=== PATIENT | male | born 1930 | race Hispanic/Latino ===

== ENCOUNTER 2018-03-08 01:27 | Inpatient (IN) | payer MEDICARE ==
[2018-03-08 02:02] LABS: URINE BILIRUBIN NEGATIVE (NEGATIVE); URINE BLOOD NEGATIVE (NEGATIVE); URINE GLUCOSE (UA) NEGATIVE (NEGATIVE); URINE LEUKOCYTE ESTERASE NEGATIVE Leu/uL (NEGATIVE); URINE PROTEIN NEGATIVE mg/dL (<30 mg/dL); URINE UROBILINOGEN 0.2 E.U./dL (<1 E.U./dL)
[2018-03-08 02:08] LABS: URINE APPEARANCE CLEAR (CLEAR); URINE COLOR LIGHT YELLOW (YELLOW)
[2018-03-08] MEDS ORDERED: Morphine 2 mg/ml ISec IVP STA (02:10)
[2018-03-08] MEDS ORDERED: Sodium Chloride 0.9% 1,000 ML IV STA (02:10)
--- NOTE | 2018-03-08 02:13 | ED PDOC ---
Arrival/HPI - General Chief Complaint: Abdominal Pain Time Seen by Provider: 03/08/18 01:43 Historian: Patient - History of Present Illness Narrative History of Present Illness (Text): 03/08/18 02:09 Nahid Howard is an 87 year old male, whose past medical history includes IDDM, hypertension, valve replacement surgery in 2006, who presents to the emergency department complaining of aching left sided lower belly pain which started yesterday. Patient reports pain worsens with movement and some associated nausea. Pain is constant. Patient reports his last colonoscopy was five years ago. Patient denies any fever, chills, chest pain, shortness of breath, vomiting, diarrhea, bloody stool, constipation, urinary symptoms, back pain, neck pain, headache, dizziness, or any other complaints. PMD: Dr. Gonzalez Time/Duration: 24 hours Symptom Course: Unchanged Quality: Aching Activities at Onset: Light Past Medical History - Provider Review Nursing Documentation Reviewed: Yes - Travel History Have you recently traveled outside [place] w/in the past 3 mons?: No - Infectious Disease Hx of Infectious Diseases: None - Tetanus Immunization Tetanus Immunization: Unknown - Cardiac Hx Hypertension: Yes Hx Pacemaker: No - Pulmonary Hx Respiratory Disorders: No - Neurological Hx Paralysis: No - HEENT Hx HEENT Disorder: No - Renal Hx Renal Disorder: (acute renal disease 10/28/13) - Endocrine/Metabolic Hx Diabetes Mellitus Type 1: Yes - Hematological/Oncological Hx Blood Transfusions: No Hx Blood Transfusion Reaction: No - Integumentary Hx Dermatological Disorder: No - Musculoskeletal/Rheumatological Hx Musculoskeletal Disorders: Yes - Gastrointestinal Hx Gastrointestinal Disorders: No - Genitourinary/Gynecological Hx Genitourinary Disorders: Yes Hx Prostate Problems: Yes - Psychiatric Hx Emotional Abuse: No Hx Physical Abuse: No Hx Substance Use: No - Surgical History Hx Valve Replacement: Yes - Anesthesia Hx Anesthesia Reactions: No Hx Malignant Hyperthermia: No - Suicidal Assessment Feels Threatened In Home Enviroment: No Family/Social History - Physician Review Nursing Documentation Reviewed: Yes Family/Social History: No Known Family HX Smoking Status: Never Smoked Hx Alcohol Use: No Hx Substance Use: No Hx Substance Use Treatment: No Allergies/Home Meds Allergies/Adverse Reactions: Allergies aspirin Allergy (Verified 03/08/18 01:36) NAUSEA Home Medications: Home Meds Medication Instructions Recorded Confirmed Insulin Glargine,Hum.rec.anlog 18 unit SC HS 10/01/13 03/08/18 [Lantus] Carvedilol [Coreg] 6.25 mg PO DAILY 11/21/15 03/08/18 Furosemide [Lasix] 20 mg PO DAILY 11/21/15 03/08/18 Insulin Detemir [Levemir] 30 units SC DAILY 11/21/15 03/08/18 Review of Systems - Physician Review All systems were reviewed & negative as marked: Yes - Review of Systems Cardiovascular: absent: Chest Pain Gastrointestinal: absent: Vomiting Physical Exam - Physical Exam Narrative Physical Exam (Text): 03/08/18 02:09 Constitutional: No acute distress. Head: Normocephalic. Atraumatic. Eyes: PERRL. ENT: Moist mucous membranes. Neck: Supple. Cardiovascular: Regular rate. Chest: No tenderness. Respiratory: Clear to auscultation bilaterally. GI: LLQ tenderness with guarding. Back: No CVA tenderness. Musculoskeletal: No tenderness or swelling of extremities. Skin: No rash. Neurologic: Alert, no focal deficit. Vital Signs Reviewed: Yes Vital Signs Temp Pulse Resp BP Pulse Ox 03/08/18 04:47 86 18 145/64 100 03/08/18 01:38 98.6 F 95 H 18 141/70 96 Temperature: Afebrile Blood Pressure: Normal Pulse: Regular Respiratory Rate: Normal Appearance: Positive for: Well-Appearing, Non-Toxic Pain Distress: Mild Mental Status: Positive for: Alert and Oriented X 3 Medical Decision Making ED Course and Treatment: 03/08/18 02:09 Impression: 87 year old male presents to the emergency department complaining of left sided lower abdominal pain. Plan: -- CT of abdomen/pelvis w/o PO or IV contrast -- Labs -- Morphine --IV fluids -- Zofran -- Urine culture -- Urinalysis -- Reassess and disposition Progress Notes: CT shows diverticulitis without abscess. Started on antibiotics, admitted to hospitalist service. Clear liquid diet ordered. - Lab Interpretations Lab Results: 03/08/18 02:49 03/08/18 02:49 Lab Results 03/08/18 02:49: Sodium 143, Potassium 4.4, Chloride 109 H, Carbon Dioxide 24, Anion Gap 15, BUN 37 H, Creatinine 2.1 H, Est GFR ( Amer) 36, Est GFR ( Non-Af Amer) 30, Random Glucose 124 H, Calcium 8.7, Total Bilirubin 0.6, AST 20 , ALT 27, Alkaline Phosphatase 63, Total Protein 6.9, Albumin 4.0, Globulin 2.9 , Albumin/Globulin Ratio 1.4, Lipase 43 03/08/18 02:49: WBC 11.0 D, RBC 3.25 L, Hgb 9.5 L, Hct 28.5 L, MCV 87.7, MCH 29.2, MCHC 33.3, RDW 14.7 H, Plt Count 198, MPV 10.2, Gran % 65.9, Lymph % (Auto ) 21.5 L, Avery % (Auto) 10.5 H, Eos % (Auto) 1.8, Baso % (Auto) 0.3, Gran # 7.25 H, Lymph # (Auto) 2.4, Avery # (Auto) 1.2 H, Eos # (Auto) 0.2, Baso # (Auto ) 0.03 03/08/18 01:52: Urine Color Light yellow, Urine Appearance Clear, Urine pH 6.0, Ur Specific [place] 1.020, Urine Protein Negative, Urine Glucose (UA) Negative, Urine Ketones Negative, Urine Blood Negative, Urine Nitrate Negative, Urine Bilirubin Negative, Urine Urobilinogen 0.2, Ur Leukocyte Esterase Negative - RAD Interpretation Radiology Orders: 03/08/18 03:15 ABD & PELVIS W/O PO OR IV CONT [CT] Stat - Medication Orders Current Medication Orders: Metronidazole (Flagyl) 500 mg in 100 mls @ 100 mls/hr IVPB STAT STA PRN Reason: Protocol Stop: 03/08/18 07:29 Last Admin: 03/08/18 06:40 Dose: 100 mls/hr eMAR Start Stop Document 03/08/18 06:40 RD (Rec: 03/08/18 06:40 RD [id number]) Intravenous Solution Start Date 03/08/18 Start Time 06:40 End Date 03/08/18 End time 07:40 Total Infusion Time 60 Discontinued Medications Sodium Chloride (Sodium Chloride 0.9%) 1,000 mls @ 999 mls/hr IV .Q1H1M STA Stop: 03/08/18 03:10 Last Admin: 03/08/18 02:41 Dose: 999 mls/hr eMAR Start Stop Document 03/08/18 02:41 OCS (Rec: 03/08/18 02:41 OCS [id number]) Intravenous Solution Start Date 03/08/18 Start Time 02:41 End Date 03/08/18 End time 03:42 Total Infusion Time 61 Levofloxacin/Dextrose (Levaquin 750mg) 750 mg IVPB STAT STA PRN Reason: Protocol Stop: 03/08/18 06:31 Morphine Sulfate (Morphine) 2 mg IVP STAT STA Stop: 03/08/18 02:11 Last Admin: 03/08/18 02:38 Dose: 2 mg MAR Pain Assessment Document 03/08/18 02:38 OCS (Rec: 03/08/18 02:38 OCS [id number]) Pain Reassessment Is this a pain reassessment? No Sleep Is patient sleeping during reassessment? No Presence of Pain Presence of Pain Yes Pain Scale Used Pain Scale Used Numeric Location Left, Right or Bilateral Left Upper or Lower Lower Pain Location Body Site Abdomen Description Description Constant Intensity of Pain at present 5 Aggravating Factors ADL's IVP Administration Document 03/08/18 02:38 OCS (Rec: 03/08/18 02:38 OCS [id number]) Charges for Administration # of IVP Administrations 1 Ondansetron HCl (Zofran Inj) 8 mg IVP STAT STA Stop: 03/08/18 02:11 Last Admin: 03/08/18 02:38 Dose: 8 mg IVP Administration Document 03/08/18 02:38 OCS (Rec: 03/08/18 02:38 OCS [id number]) Charges for Administration # of IVP Administrations 1 - Scribe Statement The provider has reviewed the documentation as recorded by the Scribe Page Osbornh All medical record entries made by the Scribe were at my direction and personally dictated by me. I have reviewed the chart and agree that the record accurately reflects my personal performance of the history, physical exam, medical decision making, and the department course for this patient. I have also personally directed, reviewed, and agree with the discharge instructions and disposition. Disposition/Present on Arrival - Present on Arrival Any Indicators Present on Arrival: No History of DVT/PE: No History of Uncontrolled Diabetes: No Urinary Catheter: No History of Decub. Ulcer: No History Surgical Site Infection Following: None - Disposition Have Diagnosis and Disposition been Completed?: Yes Diagnosis: Acute diverticulitis Disposition: HOSPITALIZED Disposition Time: 06:15 Patient Plan: Admission Condition: FAIR Referrals: Manish Gonzalez MD [Primary Care Provider] - Follow up with primary Forms: [employer] (Kiswahili)
[2018-03-08 03:09] LABS: ALB/GLOB RATIO 1.4 (1.1-1.8); CALCIUM 8.7 mg/dL (8.4-10.5)
[2018-03-08 03:32] LABS: BASO # 0.03 K/mm3 (0.0-2.0); BASO % 0.3 % (0.0-3.0); EOS # 0.2 (0.0-0.7); EOS % 1.8 % (1.5-5.0); GRAN # 7.25 (1.4-6.5); GRAN % 65.9 % (50.0-68.0); HEMOGLOBIN 9.5 g/dL (14.0-18.0); LYMPH # 2.4 (1.2-3.4); LYMPH % 21.5 % (22.0-35.0); MEAN CELL VOLUME 87.7 fl (80.0-105.0); MEAN CORPUSCULAR HEMOGLOBIN 29.2 pg (25.0-35.0); MEAN CORPUSCULAR HGB CONC 33.3 g/dl (31.0-37.0); MEAN PLATELET VOLUME 10.2 fl (7.0-11.0); MONO # 1.2 (0.1-0.6); MONO % 10.5 % (1.0-6.0); RBC 3.25 10^6/uL (3.5-6.1); RED CELL DISTRIBUTION WIDTH 14.7 % (11.5-14.5)
[2018-03-08] MEDS ORDERED: levoFLOXacin 750 mg in D5W 150 ML BAG IVPB STA (06:30)
[2018-03-08] MEDS ORDERED: metroNIDAZOLE IV 500 mg/100 ml 500 MG/100 ML BAG IVPB STA (06:30)
[2018-03-08 09:40] VITALS: BMI 30.4
[2018-03-08] MEDS: cefTRIAXone 1 gm 1 GM/100 ML BAG IVPB SCH (10:41)
--- NOTE | 2018-03-08 10:46 | CT ---
Date of service: 03/08/2018 PROCEDURE: CT Abdomen and Pelvis without intravenous contrast HISTORY: llq pain COMPARISON: 10/29/2013 TECHNIQUE: Unenhanced study. Neither oral nor intravenous contrast administered. Radiation dose: Total exam DLP = mGy-cm. This CT exam was performed using one or more of the following dose reduction techniques: Automated exposure control, adjustment of the mA and/or kV according to patient size, and/or use of iterative reconstruction technique. FINDINGS: LOWER THORAX: Unremarkable. LIVER: Unremarkable. No gross lesion or ductal dilatation. GALLBLADDER AND BILE DUCTS: Status post cholecystectomy. No abnormality is seen in the gallbladder fossa. PANCREAS: Unremarkable. No gross lesion or ductal dilatation. SPLEEN: Unremarkable. ADRENALS: Unremarkable. No mass. KIDNEYS AND URETERS: Unremarkable. No hydronephrosis. No solid mass. VASCULATURE: Unremarkable. No aortic aneurysm. BOWEL: Acute diverticulitis of affecting of limited section of the descending colon and adjacent sigmoid approximately 8 cm. No loculated air, free air, drainable collection identified. APPENDIX: Unremarkable. Normal appendix. PERITONEUM: Unremarkable. No free fluid. No free air. LYMPH NODES: Unremarkable. No enlarged lymph nodes. BLADDER: Unremarkable. REPRODUCTIVE: Unremarkable. BONES: No acute fracture. OTHER FINDINGS: None. IMPRESSION: Acute diverticulitis confined to a short segment of distal descending colon and sigmoid. No evidence of loculated air, free air or drainable collection. Concordant results (preliminary interpretation) provided by Dials. Procedure Completed: 03:27. Preliminary (vRad) Report: Dictated and Authenticated: 06:12. Final Interpretation: 10:44.
--- NOTE | 2018-03-08 11:22 | CP.PCM.HP ---
<JordinMilton loja - Last Filed: 03/08/18 15:01> History of Present Illness - History of Present Illness History of Present Illness: CC: Abdominal Pain HPI: Mr. Howard is an 87 year old male with PMH of IDDM, hypertension, valve replacement surgery in 2010, who presents to the emergency department complaining of a constant and aching left sided lower abdominal pain which started yesterday. He states that he went to sleep and was woken up with the pain at night. He denies having any stomach issues in the past before. Patient' s last bowel movement was on but he is still having flatus. Patient reports his last colonoscopy was five years ago and was normal. Patient denies any fever, chills, chest pain, shortness of breath, vomiting, diarrhea, melena, constipation, urinary symptoms, headache, or dizziness. 12 point ROS negative except as indicated in HPI Past medical history: HTN, IDDM, CKD stage 3, chronic systolic CHF, CAD s/p stent (2013), ILD, thyroid nodule, pulmonary nodule, anemia Surgical History: Aortic valve replacement (2010), cholecystectomy, stent placement (2013) Allergies: NKDA Social History: Denied alcohol, tobacco,or illicit drug use. Lives at home by self. Family History: Mother- DM-2 Medications: ASA 81mg, coreg, flonase, lasix, irbesartan, insulin, vitamin B, potassium chloride PMD: Dr. Heller [facility]: [facility] Present on Admission - Present on Admission Any Indicators Present on Admission: No History of DVT/PE: No History of Uncontrolled Diabetes: No Urinary Catheter: No Decubitus Ulcer Present: No Review of Systems - Review of Systems Review of Systems: 12 point ROS negative except as indicated in HPI Past Patient History - Infectious Disease Hx of Infectious Diseases: None - Tetanus Immunizations Tetanus Immunization: Unknown - Past Social History Smoking Status: Never Smoked - CARDIAC Hx Hypertension: Yes Hx Pacemaker: No - PULMONARY Hx Respiratory Disorders: No - NEUROLOGICAL Hx Neurological Disorder: No - HEENT Hx HEENT Problems: No - RENAL Hx Chronic Kidney Disease: (acute renal disease 10/28/13) - ENDOCRINE/METABOLIC Hx Diabetes Mellitus Type 1: Yes - HEMATOLOGICAL/ONCOLOGICAL Hx Blood Disorders: No - INTEGUMENTARY Hx Dermatological Problems: No - MUSCULOSKELETAL/RHEUMATOLOGICAL Hx Musculoskeletal Disorders: Yes Hx Falls: No - GASTROINTESTINAL Hx Gastrointestinal Disorders: No - GENITOURINARY/GYNECOLOGICAL Hx Genitourinary Disorders: Yes Hx Prostate Problems: Yes - PSYCHIATRIC Hx Emotional Abuse: No Hx Physical Abuse: No Hx Substance Use: No - SURGICAL HISTORY Hx Valve Replacement: Yes - ANESTHESIA Hx Anesthesia Reactions: No Hx Malignant Hyperthermia: No Meds Allergies/Adverse Reactions: Allergies Allergy/AdvReac Type Severity Reaction Status Date / Time No Known Allergies Allergy Verified 03/08/18 09:42 Physical Exam - Constitutional Appears: No Acute Distress - Head Exam Head Exam: ATRAUMATIC, NORMAL INSPECTION - Eye Exam Eye Exam: Normal appearance - ENT Exam ENT Exam: Mucous Membranes Moist - Cardiovascular Exam Cardiovascular Exam: REGULAR RHYTHM, +S1, +S2. absent: Gallop, Rubs, Systolic Murmur - GI/Abdominal Exam GI & Abdominal Exam: Normal Bowel Sounds, Soft, Tenderness Additional comments: Tender to palpation on lower left quadrant - Extremities Exam Extremities exam: Negative for: calf tenderness, pedal edema - Neurological Exam Neurological exam: Alert, Oriented x3 - Psychiatric Exam Psychiatric exam: Normal Affect, Normal Mood - Skin Skin Exam: Dry, Normal Color, Warm Results - Vital Signs Recent Vital Signs: Last Vital Signs Temp 98.7 F 03/08/18 09:31 Pulse 80 03/08/18 09:31 Resp 18 03/08/18 09:31 BP 106/57 L 03/08/18 09:31 Pulse Ox 99 03/08/18 08:47 - Labs Result Diagrams: 03/08/18 02:49 03/08/18 02:49 Assessment & Plan - Assessment and Plan (Free Text) Assessment: Mr. Howard is an 87 year old male with PMH of IDDM, hypertension, valve replacement surgery in 2010, who is presenting with lower abdominal pain and is being admitted for evaluation and treatment of acute diverticulitis. Plan: Acute diverticulitis - CT abdomen (03/08): acute diverticulitis confined to a short segment of distal descending colon and sigmoid - start Ceftriaxone 1g IV QD and Metronidazole 500mg IV Q8 - GI consulted- Dr. 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 Villarreal <Catina Villarreal - Last Filed: 03/08/18 15:19> Results - Vital Signs Recent Vital Signs: Last Vital Signs Temp 98.1 F 03/08/18 15:04 Pulse 81 03/08/18 15:04 Resp 18 03/08/18 15:04 BP 101/54 L 03/08/18 15:04 Pulse Ox 94 L 03/08/18 15:04 - Labs Result Diagrams: 03/08/18 02:49 03/08/18 02:49 Labs: Laboratory Results - last 24 hr 03/08/18 11:40 POC Glucose (mg/dL) 117 H Attending/Attestation - Attestation I have personally seen and examined this patient.: Yes I have fully participated in the care of the patient.: Yes I have reviewed all pertinent clinical information: Yes Notes (Text): 03/08/18 15:16 Attending note; Patient seen and examined with resident. Patient is a 87 year old male with PMH of IDDM, hypertension, aortic valve replacement surgery in 2010, who presents to the emergency department complaining of a constant and aching left sided lower abdominal pain which started yesterday. CT abdomen and pelvis consistent with acute sigmoid diverticulitis. Abdominal pain is improving. Started on IV Rocephin and Flagyl. Continue clear liquid diet. History of coronary artery disease; stable cardiac status. Continue aspirin, Coreg and losartan and Lasix. Anemia; chronic. No active bleeding noted. Chronic kidney disease; creatinine is stable at 2.1. GI evaluation requested. Monitor closely. Upon discharge the patient will follow up with PMD Dr. Gonzalez.
[2018-03-08] MEDS: Multivitamin Therapeutic Tab PO SCH (11:38)
[2018-03-08] MEDS: Insulin Reg-MEDIUM-Coverage SC SCH ×3 (11:41→22:29)
[2018-03-08] MEDS: metroNIDAZOLE IV 500 mg/100 ml 500 MG/100 ML BAG IVPB SCH ×2 (13:56→21:45)
[2018-03-09] MEDS: metroNIDAZOLE IV 500 mg/100 ml 500 MG/100 ML BAG IVPB SCH ×3 (05:39→22:15)
[2018-03-09] MEDS: Pantoprazole 40 mg EC Tab PO SCH (05:39)
[2018-03-09 07:02] LABS: HEMOGLOBIN 9.1 g/dL (14.0-18.0); MEAN CELL VOLUME 88.1 fl (80.0-105.0); MEAN CORPUSCULAR HEMOGLOBIN 29.3 pg (25.0-35.0); MEAN CORPUSCULAR HGB CONC 33.2 g/dl (31.0-37.0); MEAN PLATELET VOLUME 10.2 fl (7.0-11.0); RBC 3.11 10^6/uL (3.5-6.1); WHITE BLOOD COUNT 10.4 10^3/ul (4.5-11.0)
[2018-03-09 07:24] LABS: ALB/GLOB RATIO 1.2 (1.1-1.8); ALBUMIN 3.6 g/dL (3.0-4.8); CALCIUM 8.5 mg/dL (8.4-10.5)
[2018-03-09] MEDS: Insulin Reg-MEDIUM-Coverage SC SCH ×3 (08:01→16:01)
[2018-03-09] MEDS: cefTRIAXone 1 gm 1 GM/100 ML BAG IVPB SCH (09:23)
[2018-03-09] MEDS: Multivitamin Therapeutic Tab PO SCH (09:23)
[2018-03-09] MEDS ORDERED: Morphine 2 mg/ml ISec IVP PRN (10:28)
--- NOTE | 2018-03-09 10:46 | CP.PCM.PN ---
<Milton Katz - Last Filed: 03/09/18 11:00> Subjective - Date & Time of Evaluation Date of Evaluation: 03/09/18 Time of Evaluation: 10:46 - Subjective Subjective: Milton Katz D.O PGY-1, Internal Medicine progress note for Patient was examined at bedside, no acute overnight events. Patient complains of constipation and states that his last bowel movement was on . Denies fevers, chills, chest pain, shortness of breath, N/V/D. Objective - Vital Signs/Intake and Output Vital Signs (last 24 hours): Temp Pulse Resp BP Pulse Ox 98.9 F 90 18 105/55 L 92 L 03/08/18 21:16 03/08/18 21:16 03/08/18 21:16 03/08/18 21:16 03/08/18 21:16 Intake and Output: 03/09/18 03/09/18 06:59 18:59 Intake Total 540 Balance 540 - Medications Medications: Current Medications Acetaminophen (Tylenol 325mg Tab) 650 mg PO Q6H PRN PRN Reason: Pain, Mild (1-3) Aspirin (Ecotrin) 81 mg PO DAILY [facility] Last Admin: 03/09/18 09:23 Dose: 81 mg Carvedilol (Coreg) 12.5 mg PO DAILY JOSE Furosemide (Lasix) 40 mg PO DAILY [facility] Heparin Sodium (Porcine) (Heparin) 5,000 units SC Q8 JOSE PRN Reason: Protocol Last Admin: 03/09/18 05:39 Dose: 5,000 units Metronidazole (Flagyl) 500 mg in 100 mls @ 100 mls/hr IVPB Q8 JOSE PRN Reason: Protocol Last Admin: 03/09/18 05:39 Dose: 100 mls/hr Ceftriaxone Sodium (Rocephin 1 Gram Ivpb) 1 gm in 100 mls @ 100 mls/hr IVPB DAILY JOSE PRN Reason: Protocol Last Admin: 03/09/18 09:23 Dose: 100 mls/hr Insulin Human Regular (Humulin R Med) 0 units SC ACHS JOSE PRN Reason: Protocol Last Admin: 03/09/18 08:01 Dose: Not Given Losartan Potassium (Cozaar) 100 mg PO DAILY [facility] Morphine Sulfate (Morphine) 1 mg IVP Q4H PRN PRN Reason: Pain, severe (8-10) Multivitamins (Thera Tab) 1 tab PO DAILY [facility] Last Admin: 03/09/18 09:23 Dose: 1 tab Pantoprazole Sodium (Protonix Ec Tab) 40 mg PO 0600 [facility] Last Admin: 03/09/18 05:39 Dose: 40 mg Potassium Chloride (Klor-Con 10) 10 meq PO QOTHERDAY [facility] - Labs Labs: 03/09/18 06:30 03/09/18 06:30 - Constitutional Appears: No Acute Distress - Head Exam Head Exam: ATRAUMATIC, NORMAL INSPECTION - Eye Exam Eye Exam: Normal appearance - ENT Exam ENT Exam: Mucous Membranes Moist - Respiratory Exam Respiratory Exam: Clear to Ausculation Bilateral. absent: Rales, Rhonchi, Wheezes - Cardiovascular Exam Cardiovascular Exam: REGULAR RHYTHM, +S1, +S2. absent: Gallop, Rubs, Murmur - GI/Abdominal Exam GI & Abdominal Exam: Soft, Tenderness, Normal Bowel Sounds Additional comments: Very tender to palpation on LLQ - Extremities Exam Extremities Exam: absent: Calf Tenderness, Pedal Edema - Neurological Exam Neurological Exam: Alert, Awake, Oriented x3 - Psychiatric Exam Psychiatric exam: Normal Affect, Normal Mood - Skin Skin Exam: Dry, Normal Color, Warm Assessment and Plan - Assessment and Plan (Free Text) Assessment: Mr. Howard is an 87 year old male with PMH of IDDM, hypertension, valve replacement surgery in 2010, who presented with lower abdominal pain and is being admitted for evaluation and treatment of acute diverticulitis. Plan: Acute diverticulitis - CT abdomen (03/08): acute diverticulitis confined to a short segment of distal descending colon and sigmoid - c/w Ceftriaxone 1g IV QD and Metronidazole 500mg IV Q8 - GI consulted- Dr. 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 CKD stage 3 - Continue home potassium chloride, multivitamins - Cr baseline ~2.0 - Creatinine stable, will continue to monitor renal function Hx of systolic CHF - Continue home Coreg 12.5mg PO QD and Lasix 40mg PO QD- hold if SBP <110 and/ or HR <60 Hx of HTN - Continue home Losartan 100mg PO QD- hold if SBP <110 and/or HR <60 - patient is mildly hypotensive Hx of Diabetes - c/w insulin sliding scale - Hold home basal dose of insulin for now - Accu checks ACHS Hx of aortic valve replacement - Continue home Aspirin 81mg PO QD DVT and GI prophylaxis: Heparin and protonix Patient seen, examined, and case discussed with Dr. Villarreal <Catina Villarreal - Last Filed: 03/09/18 13:14> Objective - Vital Signs/Intake and Output Vital Signs (last 24 hours): Temp Pulse Resp BP Pulse Ox 98.9 F 90 18 105/55 L 92 L 03/08/18 21:16 03/08/18 21:16 03/08/18 21:16 03/08/18 21:16 03/08/18 21:16 Intake and Output: 03/09/18 03/09/18 06:59 18:59 Intake Total 540 Balance 540 - Medications Medications: Current Medications Acetaminophen (Tylenol 325mg Tab) 650 mg PO Q6H PRN PRN Reason: Pain, Mild (1-3) Aspirin (Ecotrin) 81 mg PO DAILY [facility] Last Admin: 03/09/18 09:23 Dose: 81 mg Carvedilol (Coreg) 12.5 mg PO DAILY JOSE Furosemide (Lasix) 40 mg PO DAILY [facility] Heparin Sodium (Porcine) (Heparin) 5,000 units SC Q8 JOSE PRN Reason: Protocol Last Admin: 03/09/18 05:39 Dose: 5,000 units Metronidazole (Flagyl) 500 mg in 100 mls @ 100 mls/hr IVPB Q8 JOSE PRN Reason: Protocol Last Admin: 03/09/18 05:39 Dose: 100 mls/hr Ceftriaxone Sodium (Rocephin 1 Gram Ivpb) 1 gm in 100 mls @ 100 mls/hr IVPB DAILY JOSE PRN Reason: Protocol Last Admin: 03/09/18 09:23 Dose: 100 mls/hr Insulin Human Regular (Humulin R Med) 0 units SC ACHS JOSE PRN Reason: Protocol Last Admin: 03/09/18 11:12 Dose: Not Given Losartan Potassium (Cozaar) 100 mg PO DAILY [facility] Morphine Sulfate (Morphine) 1 mg IVP Q4H PRN PRN Reason: Pain, severe (8-10) Multivitamins (Thera Tab) 1 tab PO DAILY [facility] Last Admin: 03/09/18 09:23 Dose: 1 tab Pantoprazole Sodium (Protonix Ec Tab) 40 mg PO 0600 [facility] Last Admin: 03/09/18 05:39 Dose: 40 mg Potassium Chloride (Klor-Con 10) 10 meq PO QOTHERDAY JOSE - Labs Labs: 03/09/18 06:30 03/09/18 06:30 Attending/Attestation - Attestation I have personally seen and examined this patient.: Yes I have fully participated in the care of the patient.: Yes I have reviewed all pertinent clinical information, including history, physical exam and plan: Yes Notes (Text): 03/09/18 13:13 Attending note; Patient seen and examined with resident. Patient is a 87 year old male with PMH of IDDM, hypertension, aortic valve replacement surgery in 2010, who presents to the emergency department complaining of a constant and aching left sided lower abdominal pain which started yesterday. CT abdomen and pelvis consistent with acute sigmoid diverticulitis. Abdominal pain is improving. Started on IV Rocephin and Flagyl. Currently on clear liquid diet. Advance to full liquid diet. Follow up with GI. History of coronary artery disease; stable cardiac status. Continue aspirin, Coreg and losartan and Lasix. Anemia; chronic. No active bleeding noted. Chronic kidney disease; creatinine is stable at 2.1. GI evaluation requested. Monitor closely. Upon discharge the patient will follow up with PMD Dr. Gonzalez.
--- NOTE | 2018-03-09 15:27 | CP.PCM.CON ---
<Pako Mcmahon - Last Filed: 03/09/18 15:41> History of Present Illness - History of Present Illness History of Present Illness: Initial PGY5 Gi Consult Lee Whitfield is an 87M w/ of IDDM, hypertension, valve replacement surgery in 2010, who presents to the ED with LLQ pain. He states that the pain is sharp and sudden. He noted the pain as 10 out of 10 and non-radiating. Patient reports his last colonoscopy was five years ago and was normal. Patient denies any fever, chills, vomiting, diarrhea, melena, constipation. Initial Ct abd revealed non-complicated sigmoid diverticulitis. Pt was started on antibiotics and kept NPO. Abd pain has improved since admission. 12 point ROS negative except as indicated in HPI Past medical history: HTN, IDDM, CKD stage 3, chronic systolic CHF, CAD s/p stent (2013), ILD, thyroid nodule, pulmonary nodule, anemia Surgical History: Aortic valve replacement (2010), cholecystectomy, stent placement (2013) Social History: Denied alcohol, tobacco,or illicit drug use. Lives at home by self. Family History: Mother- DM-2 Past Patient History - Infectious Disease Hx of Infectious Diseases: None - Tetanus Immunizations Tetanus Immunization: Unknown - Past Social History Smoking Status: Never Smoked - CARDIAC Hx Hypertension: Yes Hx Pacemaker: No - PULMONARY Hx Respiratory Disorders: No - NEUROLOGICAL Hx Neurological Disorder: No - HEENT Hx HEENT Problems: No - RENAL Hx Chronic Kidney Disease: (acute renal disease 10/28/13) - ENDOCRINE/METABOLIC Hx Diabetes Mellitus Type 1: Yes - HEMATOLOGICAL/ONCOLOGICAL Hx Blood Disorders: No - INTEGUMENTARY Hx Dermatological Problems: No - MUSCULOSKELETAL/RHEUMATOLOGICAL Hx Musculoskeletal Disorders: Yes Hx Falls: No - GASTROINTESTINAL Hx Gastrointestinal Disorders: No - GENITOURINARY/GYNECOLOGICAL Hx Genitourinary Disorders: Yes Hx Prostate Problems: Yes - PSYCHIATRIC Hx Emotional Abuse: No Hx Physical Abuse: No Hx Substance Use: No - SURGICAL HISTORY Hx Valve Replacement: Yes - ANESTHESIA Hx Anesthesia Reactions: No Hx Malignant Hyperthermia: No Meds Allergies/Adverse Reactions: Allergies Allergy/AdvReac Type Severity Reaction Status Date / Time No Known Allergies Allergy Verified 03/08/18 09:42 - Medications Medications: Current Medications Acetaminophen (Tylenol 325mg Tab) 650 mg PO Q6H PRN PRN Reason: Pain, Mild (1-3) Aspirin (Ecotrin) 81 mg PO DAILY [facility] Last Admin: 03/09/18 09:23 Dose: 81 mg Carvedilol (Coreg) 12.5 mg PO DAILY [facility] Furosemide (Lasix) 40 mg PO DAILY [facility] Heparin Sodium (Porcine) (Heparin) 5,000 units SC Q8 [facility] PRN Reason: Protocol Last Admin: 03/09/18 14:00 Dose: 5,000 units Metronidazole (Flagyl) 500 mg in 100 mls @ 100 mls/hr IVPB Q8 [facility] PRN Reason: Protocol Last Admin: 03/09/18 14:05 Dose: 100 mls/hr Ceftriaxone Sodium (Rocephin 1 Gram Ivpb) 1 gm in 100 mls @ 100 mls/hr IVPB DAILY [facility] PRN Reason: Protocol Last Admin: 03/09/18 09:23 Dose: 100 mls/hr Insulin Human Regular (Humulin R Med) 0 units SC ACHS [facility] PRN Reason: Protocol Last Admin: 03/09/18 11:12 Dose: Not Given Losartan Potassium (Cozaar) 100 mg PO DAILY [facility] Morphine Sulfate (Morphine) 1 mg IVP Q4H PRN PRN Reason: Pain, severe (8-10) Multivitamins (Thera Tab) 1 tab PO DAILY [facility] Last Admin: 03/09/18 09:23 Dose: 1 tab Pantoprazole Sodium (Protonix Ec Tab) 40 mg PO 0600 [facility] Last Admin: 03/09/18 05:39 Dose: 40 mg Potassium Chloride (Klor-Con 10) 10 meq PO QOTHERDAY [facility] Physical Exam - Constitutional Appears: Well, No Acute Distress - Head Exam Head Exam: ATRAUMATIC, NORMOCEPHALIC - Eye Exam Eye Exam: Normal appearance Pupil Exam: NORMAL ACCOMODATION - ENT Exam ENT Exam: Mucous Membranes Moist - Neck Exam Neck exam: Positive for: Normal Inspection - Respiratory Exam Respiratory Exam: Clear to Auscultation Bilateral, NORMAL BREATHING PATTERN. absent: Rales, Rhonchi, Wheezes, Respiratory Distress - Cardiovascular Exam Cardiovascular Exam: REGULAR RHYTHM, +S1, +S2 - GI/Abdominal Exam GI & Abdominal Exam: Normal Bowel Sounds, Soft, Tenderness (LLQ). absent: Distended, Firm, Guarding, Organomegaly, Pulsatile Mass, Rebound, Rigid - Extremities Exam Extremities exam: Negative for: joint swelling, pedal edema - Neurological Exam Neurological exam: Alert, Oriented x3 - Psychiatric Exam Psychiatric exam: Normal Affect, Normal Mood - Skin Skin Exam: Dry, Intact, Normal Color, Warm Results - Vital Signs Recent Vital Signs: Last Vital Signs Temp 98.9 F 03/08/18 21:16 Pulse 90 03/08/18 21:16 Resp 18 03/08/18 21:16 BP 105/55 L 03/08/18 21:16 Pulse Ox 92 L 03/08/18 21:16 - Labs Result Diagrams: 03/09/18 06:30 03/09/18 06:30 Labs: Laboratory Results - last 24 hr 03/08/18 03/08/18 03/09/18 16:02 21:01 06:30 WBC 10.4 RBC 3.11 L Hgb 9.1 L Hct 27.4 L MCV 88.1 MCH 29.3 MCHC 33.2 RDW 15.0 H Plt Count 184 MPV 10.2 Sodium Potassium Chloride Carbon Dioxide Anion Gap BUN Creatinine Est GFR ( Amer) Est GFR (Non-Af Amer) POC Glucose (mg/dL) 102 105 Random Glucose Calcium Total Bilirubin AST ALT Alkaline Phosphatase Total Protein Albumin Globulin Albumin/Globulin Ratio 03/09/18 03/09/18 06:30 06:34 WBC RBC Hgb Hct MCV MCH MCHC RDW Plt Count MPV Sodium 141 Potassium 4.7 Chloride 107 Carbon Dioxide 24 Anion Gap 14 BUN 30 H Creatinine 2.0 H Est GFR ( Amer) 39 Est GFR (Non-Af Amer) 32 POC Glucose (mg/dL) 94 Random Glucose 94 Calcium 8.5 Total Bilirubin 0.6 AST 23 ALT 21 Alkaline Phosphatase 56 Total Protein 6.4 Albumin 3.6 Globulin 2.9 Albumin/Globulin Ratio 1.2 Assessment & Plan - Assessment and Plan (Free Text) Assessment: Lee Whitfield is an 87M w/ of IDDM, hypertension, valve replacement surgery in 2010, who presents to the ED with LLQ pain. He states that the pain is sharp and sudden Acute uncomplicated diverticulitis Plan: -continue abx -start clears, advance to low residual as tolerated -will eventually need colonoscopy after 2months -will need to complete 10 days of abx -continue to follow -consider surgical eval if symptoms do not improve D/W Dr. Bloom <Tmoi Bloom V - Last Filed: 03/09/18 19:03> Meds - Medications Medications: Current Medications Acetaminophen (Tylenol 325mg Tab) 650 mg PO Q6H PRN PRN Reason: Pain, Mild (1-3) Aspirin (Ecotrin) 81 mg PO DAILY [facility] Last Admin: 03/09/18 09:23 Dose: 81 mg Carvedilol (Coreg) 12.5 mg PO DAILY [facility] Furosemide (Lasix) 40 mg PO DAILY [facility] Heparin Sodium (Porcine) (Heparin) 5,000 units SC Q8 [facility] PRN Reason: Protocol Last Admin: 03/09/18 14:00 Dose: 5,000 units Metronidazole (Flagyl) 500 mg in 100 mls @ 100 mls/hr IVPB Q8 [facility] PRN Reason: Protocol Last Admin: 03/09/18 14:05 Dose: 100 mls/hr Ceftriaxone Sodium (Rocephin 1 Gram Ivpb) 1 gm in 100 mls @ 100 mls/hr IVPB DAILY [facility] PRN Reason: Protocol Last Admin: 03/09/18 09:23 Dose: 100 mls/hr Insulin Human Regular (Humulin R Med) 0 units SC ACHS [facility] PRN Reason: Protocol Last Admin: 03/09/18 16:01 Dose: Not Given Losartan Potassium (Cozaar) 100 mg PO DAILY [facility] Morphine Sulfate (Morphine) 1 mg IVP Q4H PRN PRN Reason: Pain, severe (8-10) Multivitamins (Thera Tab) 1 tab PO DAILY [facility] Last Admin: 03/09/18 09:23 Dose: 1 tab Pantoprazole Sodium (Protonix Ec Tab) 40 mg PO 0600 [facility] Last Admin: 03/09/18 05:39 Dose: 40 mg Potassium Chloride (Klor-Con 10) 10 meq PO QOTHERDAY [facility] Results - Vital Signs Recent Vital Signs: Last Vital Signs Temp 98.9 F 03/08/18 21:16 Pulse 90 03/08/18 21:16 Resp 18 03/08/18 21:16 BP 105/55 L 03/08/18 21:16 Pulse Ox 92 L 03/08/18 21:16 - Labs Result Diagrams: 03/09/18 06:30 03/09/18 06:30 Labs: Laboratory Results - last 24 hr 03/08/18 03/08/18 03/09/18 16:02 21:01 06:30 WBC 10.4 RBC 3.11 L Hgb 9.1 L Hct 27.4 L MCV 88.1 MCH 29.3 MCHC 33.2 RDW 15.0 H Plt Count 184 MPV 10.2 Sodium Potassium Chloride Carbon Dioxide Anion Gap BUN Creatinine Est GFR ( Amer) Est GFR (Non-Af Amer) POC Glucose (mg/dL) 102 105 Random Glucose Calcium Total Bilirubin AST ALT Alkaline Phosphatase Total Protein Albumin Globulin Albumin/Globulin Ratio 03/09/18 03/09/18 03/09/18 06:30 06:34 11:08 WBC RBC Hgb Hct MCV MCH MCHC RDW Plt Count MPV Sodium 141 Potassium 4.7 Chloride 107 Carbon Dioxide 24 Anion Gap 14 BUN 30 H Creatinine 2.0 H Est GFR ( Amer) 39 Est GFR (Non-Af Amer) 32 POC Glucose (mg/dL) 94 111 H Random Glucose 94 Calcium 8.5 Total Bilirubin 0.6 AST 23 ALT 21 Alkaline Phosphatase 56 Total Protein 6.4 Albumin 3.6 Globulin 2.9 Albumin/Globulin Ratio 1.2 Attending/Attestation - Attestation I have personally seen and examined this patient.: Yes I have fully participated in the care of the patient.: Yes I have reviewed all pertinent clinical information: Yes Notes (Text): This is an addendum to GI progress report dictated by the GI Fellow.The patient was seen and examined earlier. Medical records, lab studies, imagings were reviewed. Last 24 hours events reviewed. Agreed with the above treatment plan as outlined in GI Fellow 's notes the with the addition of the following Acute sigmoid diverticulitis CT scan was reviewed Extensive diverticulosis throughout the colon maximum left: Continue antibiotics Clear liquid diet 03/09/18 19:03
[2018-03-10] MEDS: metroNIDAZOLE IV 500 mg/100 ml 500 MG/100 ML BAG IVPB SCH ×3 (06:15→22:30)
[2018-03-10] MEDS: Pantoprazole 40 mg EC Tab PO SCH (06:16)
[2018-03-10 07:30] LABS: HEMOGLOBIN 9.7 g/dL (14.0-18.0); MEAN CELL VOLUME 87.6 fl (80.0-105.0); MEAN CORPUSCULAR HEMOGLOBIN 28.5 pg (25.0-35.0); MEAN CORPUSCULAR HGB CONC 32.6 g/dl (31.0-37.0); MEAN PLATELET VOLUME 10.3 fl (7.0-11.0); RBC 3.4 10^6/uL (3.5-6.1); RED CELL DISTRIBUTION WIDTH 14.7 % (11.5-14.5); WHITE BLOOD COUNT 9.1 10^3/ul (4.5-11.0)
[2018-03-10 07:40] LABS: ALB/GLOB RATIO 1.3 (1.1-1.8); ALBUMIN 4.1 g/dL (3.0-4.8)
[2018-03-10] MEDS: Insulin Reg-MEDIUM-Coverage SC SCH ×4 (08:17→22:31)
[2018-03-10] MEDS ORDERED: Potassium Chloride 10 mEq ER Tab PO SCH (10:00)
[2018-03-10] MEDS: cefTRIAXone 1 gm 1 GM/100 ML BAG IVPB SCH (10:03)
[2018-03-10] MEDS: Multivitamin Therapeutic Tab PO SCH (10:03)
--- NOTE | 2018-03-10 11:47 | PN ---
DATE: 03/10/2018 SUBJECTIVE: The patient is lying in bed. He states that his abdominal pain is less. He denies any nausea, vomiting, fevers, chills or pneumaturia. PHYSICAL EXAMINATION: VITAL SIGNS: Reveal temperature of 98.6, blood pressure 151/79, heart rate of 85. HEENT: Reveals sclerae to be white. Conjunctivae pink. NECK: Supple. CHEST: Lungs are clear. HEART: Reveals regular rate and rhythm. ABDOMEN: Distended, protuberant, nontender. No mass. EXTREMITIES: Show no edema. LABORATORY DATA: Reveal white blood cell count of 9.1, BUN 27, creatinine 2, blood sugar of . IMPRESSION: 1. Diverticulitis involving the descending and sigmoid colon. 2. Diabetes mellitus. 3. Chronic kidney disease. 4. Anemia. RECOMMENDATIONS: 1. Continue IV ceftriaxone 1 g daily. 2. Continue IV Flagyl 500 mg IV every 8 hours. 3. Maintain on full liquid diet for now. When his abdominal pain resolves, would advance to a low-residue diet. I have discussed this case with the medical billing representative and residents. Manish Courtney MD
--- NOTE | 2018-03-10 13:03 | CP.PCM.PN ---
<Vesta Nath - Last Filed: 03/10/18 20:36> Subjective - Date & Time of Evaluation Date of Evaluation: 03/10/18 Time of Evaluation: 07:00 - Subjective Subjective: Vseta Nath D.O PGY-1, Internal Medicine progress note for Dr. Mcmahon Patient was examined at bedside, no acute overnight events. Patient complains of constipation and states that his last bowel movement was on Saturday. Denies fevers, chills, chest pain, shortness of breath, N/V/D, or any other symptoms. Objective - Vital Signs/Intake and Output Vital Signs (last 24 hours): Temp Pulse Resp BP Pulse Ox 98.6 F 85 20 151/79 H 96 03/10/18 08:01 03/10/18 10:03 03/10/18 08:01 03/10/18 10:03 03/10/18 08:01 Intake and Output: 03/10/18 03/10/18 06:59 18:59 Intake Total 620 Output Total 550 Balance 70 - Medications Medications: Current Medications Acetaminophen (Tylenol 325mg Tab) 650 mg PO Q6H PRN PRN Reason: Pain, Mild (1-3) Aspirin (Ecotrin) 81 mg PO DAILY [facility] Last Admin: 03/10/18 10:03 Dose: 81 mg Carvedilol (Coreg) 12.5 mg PO DAILY [facility] Last Admin: 03/10/18 10:03 Dose: 12.5 mg Furosemide (Lasix) 40 mg PO DAILY [facility] Last Admin: 03/10/18 10:03 Dose: 40 mg Heparin Sodium (Porcine) (Heparin) 5,000 units SC Q8 [facility] PRN Reason: Protocol Last Admin: 03/10/18 06:16 Dose: 5,000 units Metronidazole (Flagyl) 500 mg in 100 mls @ 100 mls/hr IVPB Q8 [facility] PRN Reason: Protocol Last Admin: 03/10/18 06:15 Dose: 100 mls/hr Ceftriaxone Sodium (Rocephin 1 Gram Ivpb) 1 gm in 100 mls @ 100 mls/hr IVPB DAILY [facility] PRN Reason: Protocol Last Admin: 03/10/18 10:03 Dose: 100 mls/hr Insulin Human Regular (Humulin R Med) 0 units SC ACHS [facility] PRN Reason: Protocol Last Admin: 03/10/18 11:57 Dose: Not Given Losartan Potassium (Cozaar) 100 mg PO DAILY [facility] Last Admin: 03/10/18 10:03 Dose: 100 mg Morphine Sulfate (Morphine) 1 mg IVP Q4H PRN PRN Reason: Pain, severe (8-10) Multivitamins (Thera Tab) 1 tab PO DAILY [facility] Last Admin: 03/10/18 10:03 Dose: 1 tab Pantoprazole Sodium (Protonix Ec Tab) 40 mg PO 0600 [facility] Last Admin: 03/10/18 06:16 Dose: 40 mg Potassium Chloride (Klor-Con 10) 10 meq PO QOTHERDAY [facility] Last Admin: 03/10/18 10:03 Dose: 10 meq - Labs Labs: 03/10/18 07:00 03/10/18 07:00 - Constitutional Appears: Well, No Acute Distress - Head Exam Head Exam: ATRAUMATIC, NORMAL INSPECTION - Eye Exam Eye Exam: EOMI, PERRL - ENT Exam ENT Exam: Mucous Membranes Moist - Respiratory Exam Respiratory Exam: Clear to Ausculation Bilateral - Cardiovascular Exam Cardiovascular Exam: REGULAR RHYTHM Assessment and Plan - Assessment and Plan (Free Text) Assessment: Mr. Howard is an 87 year old male with PMH of IDDM, hypertension, valve replacement surgery in 2010, who presented with lower abdominal pain and is being treated for acute diverticulitis. Plan: Acute diverticulitis - CT abdomen (03/08): acute diverticulitis confined to a short segment of distal descending colon and sigmoid - c/w Ceftriaxone 1g IV QD and Metronidazole 500mg IV Q8 Day 10/19 - GI consulted: Dr. Courtney. Will follow recommendations. - As per GI, patient to continue full liquid diet. Will progress to low residue diet once abdominal tenderness resolves. - No leukocytosis- will continue to monitor - women designer referral for diverticulitis CKD stage 3 - Continue home potassium chloride, multivitamins - Cr baseline ~2.0 - Creatinine stable, at 2.0, will continue to monitor. Hx of systolic CHF - Continue home Coreg 12.5mg PO QD and Lasix 40mg PO QD- hold if SBP <110 and/ or HR <60 Hx of HTN - Continue home Losartan 100mg PO QD-hold if SBP <110 and/or HR <60 - Patient's BP today was 150/79 Hx of Diabetes - c/w insulin sliding scale - Hold home basal dose of insulin for now - Accu checks ACHS Hx of aortic valve replacement - Continue home Aspirin 81mg PO QD DVT and GI prophylaxis: Heparin and protonix <Dora Mcmahon R - Last Filed: 03/11/18 20:46> Objective - Vital Signs/Intake and Output Vital Signs (last 24 hours): Temp Pulse Resp BP Pulse Ox 98.4 F 78 18 110/60 100 03/11/18 14:00 03/11/18 14:00 03/11/18 14:00 03/11/18 14:00 03/11/18 14:00 - Labs Labs: 03/11/18 07:20 03/11/18 07:20 Attending/Attestation - Attestation I have personally seen and examined this patient.: Yes I have fully participated in the care of the patient.: Yes I have reviewed all pertinent clinical information, including history, physical exam and plan: Yes Notes (Text): Patient seen and examined by me at 11:20AM 03/10/18 with resident. Patient is new to me. Case discussed with Dr. Eagle. Case including HPI, physical exam , and assessment and plan discussed with resident. Agree with above with following additions/corrections. Patient is an 87-year-old male with past medical history significant for insulin -dependent type 2 diabetes, hypertension, valvular disease status post valve replacement, chronic kidney disease, chronic systolic CHF, coronary artery disease, and anemia that presented to the emergency room with left lower quadrant abdominal pain. Patient states that he is feeling ok. Feels much better than on admission. States his abdominal pain is much better. Pain is still located at left lower quadrant, does not radiate, and only hurts when it is pushed on. Denies any associated nausea or vomiting. Patient states that he is tolerating his diet. Patient has not walked yet and is unsure if pain is there with walking. He denies any chest pain or shortness of breath. No headaches or dizziness. No fevers or chills. No dysuria. Denies bowel movement since being in hospital. Physical exam: Gen: Awake and alert sitting up in chair in no acute distress HEENT: Normocephalic atraumatic. Extraocular muscles intact, pupils equal reactive. No scleral icterus. Oropharynx is pink and moist, no pharyngeal erythema or exudate appreciated. Neck is supple. Cardiovascular:Normal S1, S2. Positive systolic murmur. No rubs or gallops appreciated Pulmonary: Normal respiratory effort. No rhonchi, rales, or wheezing appreciated. Gastrointestinal: Soft, mild left lower quadrant tenderness, nondistended, positive bowel sounds all 4 quadrants, no guarding. Musculoskeletal: Normal range of motion all extremities, no calf tenderness Central nervous system: AAO x 3. CN 2-12 grossly intact. Sensation intact Dermatologic: Skin warm and dry. Assessment and plan: Patient is an 87-year-old male with past medical history significant for insulin-dependent type 2 diabetes, hypertension, valvular disease status post valve replacement, chronic kidney disease, chronic systolic CHF, coronary artery disease, and anemia that presented to the emergency room with left lower quadrant abdominal pain. 1. Acute diverticulitis. Continue Rocephin and Flagyl. GI following, recommendations appreciated. Advance diet when pain has improved. CT abd/pelvis per radiologist shows acute diverticulitis confined to a short segment of the distal descending colon and sigmoid; no evidence of loculated air, free air, or drainable collection. 2. Left lower quadrant abdominal pain. Secondary to #1. Improving. Continue with pain management. Continue antibiotics. 3. Chronic kidney disease. Baseline in 2016 appears to be creatinine 1.6-1.7. Patient may be at a new baseline. Creatinine stable at 2. Continue to monitor. Patient will need outpatient follow-up with nephrology. 4. Anemia. Chronic. H&H stable. No signs of active bleeding. Continue to monitor. 5. Chronic systolic CHF. Patient not in exacerbation. Continue home Coreg, Cozaar, and Lasix 6. Essential hypertension. Continue Coreg, Cozaar, and Lasix 7. Coronary artery disease status post stent placement. History of aortic valve replacement. No acute issues. Continue home aspirin, Coreg, and Cozaar. 8. Insulin-dependent type 2 diabetes. Continue insulin sliding scale. Continue to monitor Accu-Cheks. 9. GI/DVT prophylaxis. Protonix and heparin Case was discussed in detail with the patient and medical social worker regarding current diagnosis and treatment plan.
[2018-03-11] MEDS: metroNIDAZOLE IV 500 mg/100 ml 500 MG/100 ML BAG IVPB SCH ×2 (06:32→14:54)
[2018-03-11] MEDS: Pantoprazole 40 mg EC Tab PO SCH (06:33)
[2018-03-11 07:49] LABS: MEAN CORPUSCULAR HGB CONC 33.3 g/dl (31.0-37.0); MEAN PLATELET VOLUME 10.2 fl (7.0-11.0); RBC 3.45 10^6/uL (3.5-6.1); RED CELL DISTRIBUTION WIDTH 14.8 % (11.5-14.5); WHITE BLOOD COUNT 8.2 10^3/ul (4.5-11.0)
[2018-03-11 08:07] LABS: ALB/GLOB RATIO 1.3 (1.1-1.8); ALBUMIN 3.9 g/dL (3.0-4.8); CALCIUM 9.4 mg/dL (8.4-10.5)
[2018-03-11] MEDS: Insulin Reg-MEDIUM-Coverage SC SCH ×2 (10:08→16:17)
[2018-03-11] MEDS: Multivitamin Therapeutic Tab PO SCH (10:10)
[2018-03-11] MEDS: cefTRIAXone 1 gm 1 GM/100 ML BAG IVPB SCH (10:10)
[2018-03-11 14:19] VITALS: BP 110/60; PULSE 78; RESP 18; TEMP 98.4; O2SAT 100
--- NOTE | 2018-03-11 15:21 | PN ---
Copied To: Manish Courtney MD Attending MD: Manish Courtney MD. DATE: 03/11/2018 SUBJECTIVE: The patient is lying in bed comfortable. He is tolerating solid foods. He has not had any further recurrent abdominal pain. He had a bowel movement yesterday. PHYSICAL EXAMINATION: VITAL SIGNS: Reveal temperature of 98.8, blood pressure 129/70, heart rate of 77. HEENT: Reveals sclerae to be white. Conjunctivae pink. NECK: Supple. CHEST: Lungs are clear. HEART: Reveals regular rate and rhythm. ABDOMEN: Soft, nontender. No mass. EXTREMITIES: Show no edema. LABORATORY DATA: Reveal white blood cell count 8.2, hemoglobin 10, BUN 30, creatinine 2.3. IMPRESSION: 1. Sigmoid diverticulitis, clinically improving. 2. Chronic kidney disease. 3. Anemia most likely of chronic disease. 4. Diabetes mellitus. RECOMMENDATIONS: The patient is stable from a GI standpoint to be discharged home. Would continue antibiotics orally in the form of Cipro 500 b.i.d. and Flagyl 500 t.i.d. The patient has also been instructed to continue a low residue diet and to return to the hospital if he has recurrence of abdominal pain. Manish Courtney MD
--- NOTE | 2018-03-11 15:21 | CP.PCM.CON ---
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 Will plan for HD today as ordered Hypertension control with meds as ordered. Patient on losartan 100 mg/day, will lower to 50 mg/day. may consider lowering dose of lasix in future depending upon BP and renal function, normal LVEF on echo in past last K 4.8-4.9 raneg, will d/c standing KCL dose and supplement Prn basis Monitor Input/Output, daily weights and renal function with basic metabolic panel Check urine spot protein/creatinine and albumin/creatinine ratio Check for 25-OH vitamin D, iPTH, phosphorus level Check anemia work up with TSAT/Ferritin/B12 and folate level, serum protein electrophoresis with immunofixation, serum free light chain assay ([place]/Lambda) Dose meds/antibiotics for reduced GFR. Avoid fleets enema/magnesium based laxatives. Avoid nephrotoxins/NSAIDs/ iodinated contrast (unless needed emergently) Glycemic control Further work up/management as per primary team Thanks for allowing me to participate in care of your patient. Will follow patient with you. Please call if any Qs. had d/w team Dr José Miguel Cabrera Office: [phone] Chief Complaint; Pain abdomen reason for consult: ADRI on CKD 3 HPI: Pt is a 87 M with hx of diabetes Mellitus ( years), hypertension (years) CHF, AVR, CAD s/p stent, CKD stage 3 iwth baseline cr 1.6-1.8 in 2016 presented with complaints of pain abdomen and found to have acute diverticulitis on CT scan. renal consult for ADRI management and CKD eval. pt at this time feels better. tolerating diet. no urine complaints Denies OTC/herbal meds or NSAIDs No recent iodinated contrast exposure. Noted obvious episodes of low BP (101/53) . ROS: Cardiovascular: No chest pain. Pulmonary: No shortness of breath Gastrointestinal: denies abdominal pain No nausea. No vomiting. Genitourinary: No pain while urinating. Denies blood in urine. All other negative except as mentioned in HPI Physical Examination: General Appearance: Comfortable, in no acute respiratory distress, co-operative . Vitals reviewed and noted as below Head; Atraumatic, normocephalic ENT: no ulcers no thrush. Tongue is midline. Oropharynx: no rash or ulcers. EYES: Pupils are equal, round and reactive to light accommodation. Eye muscles and extraocular movement intact. Sclera is anicteric. Neck; supple no lymphadenopathy, no thyromegaly or bruit Lungs: Normal respiratory rate/effort. Breath sounds bilateral equal and clear Heart: Normal rate. s1s2 normal. No rub or gallop. Extremities: no edema. No varicose veins Neurological: Patient is alert, awake and oriented to person, place and time. No focal deficit. Strength bilateral appropriate and equal Skin: Warm and dry. Normal turgor. No rash. Palpitation: Normal elasticity for age Abdomen: Abdomen is soft. Bowel sounds +. There is no abdominal tenderness, no guarding/rigidity no organomegaly Psych: normal insight and normal affect/mood MSK: no joint tenderness or swelling. Digits and nails normal, no deformity : kidney or bladder not palpable Labs/imaging reviewed. Past medical history, past surgical history, family history, social history, allergy reviewed and noted as below Family hx: no hx of CKD. Rest non-contributory CT: diverticulitis. renal imaging: no hydro or obstruction Echo 2016: normal LVEF UA no protein/blood Past Patient History - Infectious Disease Hx of Infectious Diseases: None - Tetanus Immunizations Tetanus Immunization: Unknown - Past Social History Smoking Status: Never Smoked - CARDIAC Hx Hypertension: Yes Hx Pacemaker: No - PULMONARY Hx Respiratory Disorders: No - NEUROLOGICAL Hx Neurological Disorder: No - HEENT Hx HEENT Problems: No - RENAL Hx Chronic Kidney Disease: (acute renal disease 10/28/13) - ENDOCRINE/METABOLIC Hx Diabetes Mellitus Type 1: Yes - HEMATOLOGICAL/ONCOLOGICAL Hx Blood Disorders: No - INTEGUMENTARY Hx Dermatological Problems: No - MUSCULOSKELETAL/RHEUMATOLOGICAL Hx Musculoskeletal Disorders: Yes Hx Falls: No - GASTROINTESTINAL Hx Gastrointestinal Disorders: No - GENITOURINARY/GYNECOLOGICAL Hx Genitourinary Disorders: Yes Hx Prostate Problems: Yes - PSYCHIATRIC Hx Emotional Abuse: No Hx Physical Abuse: No Hx Substance Use: No - SURGICAL HISTORY Hx Valve Replacement: Yes - ANESTHESIA Hx Anesthesia Reactions: No Hx Malignant Hyperthermia: No Meds Home Medications: Home Medication List Medication Instructions Recorded Confirmed Type Ciprofloxacin HCl [Cipro] 500 mg PO BID #14 tab 03/11/18 Rx Lactobacillus Acidophilus [Bacid 1 cap PO DAILY #30 cap 03/11/18 Rx Acidophilus] Metronidazole [Flagyl] 500 mg PO TID #21 tablet 03/11/18 Rx Allergies/Adverse Reactions: Allergies Allergy/AdvReac Type Severity Reaction Status Date / Time No Known Allergies Allergy Verified 03/08/18 09:42 - Medications Medications: Current Medications Acetaminophen (Tylenol 325mg Tab) 650 mg PO Q6H PRN PRN Reason: Pain, Mild (1-3) Aspirin (Ecotrin) 81 mg PO DAILY [facility] Last Admin: 03/11/18 10:08 Dose: 81 mg Carvedilol (Coreg) 12.5 mg PO DAILY [facility] Last Admin: 03/11/18 10:03 Dose: 12.5 mg Furosemide (Lasix) 40 mg PO DAILY [facility] Last Admin: 03/11/18 10:09 Dose: 40 mg Heparin Sodium (Porcine) (Heparin) 5,000 units SC Q8 JOSE PRN Reason: Protocol Last Admin: 03/11/18 14:54 Dose: 5,000 units Metronidazole (Flagyl) 500 mg in 100 mls @ 100 mls/hr IVPB Q8 JOSE PRN Reason: Protocol Last Admin: 03/11/18 14:54 Dose: 100 mls/hr Ceftriaxone Sodium (Rocephin 1 Gram Ivpb) 1 gm in 100 mls @ 100 mls/hr IVPB DAILY [facility] PRN Reason: Protocol Last Admin: 03/11/18 10:10 Dose: 100 mls/hr Insulin Human Regular (Humulin R Med) 0 units SC ACHS JOSE PRN Reason: Protocol Last Admin: 03/11/18 10:08 Dose: Not Given Losartan Potassium (Cozaar) 100 mg PO DAILY [facility] Last Admin: 03/11/18 10:07 Dose: 100 mg Morphine Sulfate (Morphine) 1 mg IVP Q4H PRN PRN Reason: Pain, severe (8-10) Multivitamins (Thera Tab) 1 tab PO DAILY [facility] Last Admin: 03/11/18 10:10 Dose: 1 tab Pantoprazole Sodium (Protonix Ec Tab) 40 mg PO 0600 [facility] Last Admin: 03/11/18 06:33 Dose: 40 mg Potassium Chloride (Klor-Con 10) 10 meq PO QOTHERDAY [facility] Last Admin: 03/10/18 10:03 Dose: 10 meq Results - Vital Signs Recent Vital Signs: Last Vital Signs Temp 98.4 F 03/11/18 14:00 Pulse 78 03/11/18 14:00 Resp 18 03/11/18 14:00 BP 110/60 03/11/18 14:00 Pulse Ox 100 03/11/18 14:00 - Labs Result Diagrams: 03/11/18 07:20 03/11/18 07:20 Labs: Laboratory Results - last 24 hr 03/10/18 03/10/18 03/11/18 16:09 20:39 07:20 WBC 8.2 RBC 3.45 L Hgb 10.0 L Hct 30.0 L MCV 87.0 MCH 29.0 MCHC 33.3 RDW 14.8 H Plt Count 220 MPV 10.2 Sodium Potassium Chloride Carbon Dioxide Anion Gap BUN Creatinine Est GFR ( Amer) Est GFR (Non-Af Amer) POC Glucose (mg/dL) 149 H 147 H Random Glucose Calcium Total Bilirubin AST ALT Alkaline Phosphatase Total Protein Albumin Globulin Albumin/Globulin Ratio 03/11/18 07:20 WBC RBC Hgb Hct MCV MCH MCHC RDW Plt Count MPV Sodium 141 Potassium 4.8 Chloride 105 Carbon Dioxide 26 Anion Gap 15 BUN 30 H Creatinine 2.3 H Est GFR ( Amer) 33 Est GFR (Non-Af Amer) 27 POC Glucose (mg/dL) Random Glucose 133 H Calcium 9.4 Total Bilirubin 0.6 AST 33 ALT 22 Alkaline Phosphatase 64 Total Protein 6.9 Albumin 3.9 Globulin 3.0 Albumin/Globulin Ratio 1.3
--- NOTE | 2018-03-11 19:55 | CP.PCM.DIS ---
Provider - Provider Date of Admission: 03/08/18 06:39 Attending physician: Dora Mcmahon DO Primary care physician: Manish Gonzalez MD Consults: GI: Dr. Bloom and Dr. Courtney Nephrology: Dr. Cabrera Time Spent in preparation of Discharge (in minutes): 100 Hospital Course - Lab Results Lab Results: Most Recent Lab Values WBC 8.2 10^3/ul (4.5-11.0) 03/11/18 07:20 RBC 3.45 10^6/uL (3.5-6.1) L 03/11/18 07:20 Hgb 10.0 g/dL (14.0-18.0) L 03/11/18 07:20 Hct 30.0 % (42.0-52.0) L 03/11/18 07:20 MCV 87.0 fl (80.0-105.0) 03/11/18 07:20 MCH 29.0 pg (25.0-35.0) 03/11/18 07:20 MCHC 33.3 g/dl (31.0-37.0) 03/11/18 07:20 RDW 14.8 % (11.5-14.5) H 03/11/18 07:20 Plt Count 220 10^3/uL (120.0-450.0) 03/11/18 07:20 MPV 10.2 fl (7.0-11.0) 03/11/18 07:20 Gran % 65.9 % (50.0-68.0) 03/08/18 02:49 Lymph % (Auto) 21.5 % (22.0-35.0) L 03/08/18 02:49 [place] % (Auto) 10.5 % (1.0-6.0) H 03/08/18 02:49 Eos % (Auto) 1.8 % (1.5-5.0) 03/08/18 02:49 Baso % (Auto) 0.3 % (0.0-3.0) 03/08/18 02:49 Gran # 7.25 (1.4-6.5) H 03/08/18 02:49 Lymph # (Auto) 2.4 (1.2-3.4) 03/08/18 02:49 [place] # (Auto) 1.2 (0.1-0.6) H 03/08/18 02:49 Eos # (Auto) 0.2 (0.0-0.7) 03/08/18 02:49 Baso # (Auto) 0.03 K/mm3 (0.0-2.0) 03/08/18 02:49 Sodium 141 mmol/L (132-148) 03/11/18 07:20 Potassium 4.8 mmol/L (3.6-5.0) 03/11/18 07:20 Chloride 105 mmol/L (98-107) 03/11/18 07:20 Carbon Dioxide 26 mmol/L (21-33) 03/11/18 07:20 Anion Gap 15 (10-20) 03/11/18 07:20 BUN 30 mg/dL (7-21) H 03/11/18 07:20 Creatinine 2.3 mg/dl (0.8-1.5) H 03/11/18 07:20 Est GFR ( Amer) 33 03/11/18 07:20 Est GFR (Non-Af Amer) 27 03/11/18 07:20 POC Glucose (mg/dL) 152 mg/dL (65-110) H 03/11/18 16:10 Random Glucose 133 mg/dL (70-110) H 03/11/18 07:20 Calcium 9.4 mg/dL (8.4-10.5) 03/11/18 07:20 Total Bilirubin 0.6 mg/dL (0.2-1.3) 03/11/18 07:20 AST 33 U/L (17-59) 03/11/18 07:20 ALT 22 U/L (7-56) 03/11/18 07:20 Alkaline Phosphatase 64 U/L (38-126) 03/11/18 07:20 Total Protein 6.9 g/dL (5.8-8.3) 03/11/18 07:20 Albumin 3.9 g/dL (3.0-4.8) 03/11/18 07:20 Globulin 3.0 gm/dL 03/11/18 07:20 Albumin/Globulin Ratio 1.3 (1.1-1.8) 03/11/18 07:20 Lipase 43 U/L (23-300) 03/08/18 02:49 Urine Color Light yellow (YELLOW) 03/08/18 01:52 Urine Appearance Clear (CLEAR) 03/08/18 01:52 Urine pH 6.0 (4.7-8.0) 03/08/18 01:52 Ur Specific [place] 1.020 (1.005-1.035) 03/08/18 01:52 Urine Protein Negative mg/dL (<30 mg/dL) 03/08/18 01:52 Urine Glucose (UA) Negative mg/dL (NEGATIVE) 03/08/18 01:52 Urine Ketones Negative mg/dL (NEGATIVE) 03/08/18 01:52 Urine Blood Negative (NEGATIVE) 03/08/18 01:52 Urine Nitrate Negative (NEGATIVE) 03/08/18 01:52 Urine Bilirubin Negative (NEGATIVE) 03/08/18 01:52 Urine Urobilinogen 0.2 E.U./dL (<1 E.U./dL) 03/08/18 01:52 Ur Leukocyte Esterase Negative John/uL (NEGATIVE) 03/08/18 01:52 - Hospital Course Hospital Course: Vesta Nath, PGY-1, Internal Medicine Discharge Summary For Dr. Dora Mcmahon. 87 year old male with past medical history of IDDM, HTN, valve replacement in 2010 presented with lower abdominal pain. Patient was diagnosed with diverticulitis on CT on 03/08. Patient was started on a course of ceftriaxone 1 gm 1x a day and metronidazole 500 mg PO Q8 and continued on this course as per Dr. Bloom and Dr. Courtney. Patient was progressed from a clear liquid diet to a full liquid diet. Today, he was progressed to a low residue diet once pain resolved and has been tolerating the diet. Patient's pain remitted since the and today reported that he has no pain. Patient lives at home and will be discharged to home. Today he was on 11/[address] Cabrera was consulted for elevated creatinine. Patient has a baseline creatinine of 2 and has remained around that creatinine level throughout his hospital stay, but his creatinine increased to 2.3 today. Patient will follow up with Dr. Cabrera, nephrology, for his elevated creatinine. Dr. Cabrera recommended no acute renal replacement needed. On discharge, he will continue with ciprofloaxicin 500 mg BID and metronidazole 500 mg TID for 7 days. Patient was also discharged with irbesartan 150 mg PO and lactobacillus acidophilus 1 tab PO for 30 days each and told to follow up with Dr. Gonzalez (PCP), Dr. Courtney (GI), and Dr. Cabrera ( Nephrology). - Date & Time of H&P Date of H&P: 03/08/18 Time of H&P: 11:09 Discharge Exam - Head Exam Head Exam: ATRAUMATIC, NORMAL INSPECTION - Eye Exam Eye Exam: EOMI Pupil Exam: PERRL - Respiratory Exam Respiratory Exam: Clear to PA & Lateral, NORMAL BREATHING PATTERN - Cardiovascular Exam Cardiovascular Exam: REGULAR RHYTHM, RRR - GI/Abdominal Exam GI & Abdominal Exam: Normal Bowel Sounds, Soft - Extremities Exam Extremities exam: full ROM - Neurological Exam Neurological exam: Alert, CN II-XII Intact, Normal Gait, Oriented x3 - Psychiatric Exam Psychiatric exam: Normal Affect, Normal Mood - Skin Skin Exam: Dry, Normal Color, Warm Discharge Plan - Discharge Medications Prescriptions: Ciprofloxacin HCl [Cipro] 500 mg PO BID #14 tab Irbesartan [Avapro] 150 mg PO DAILY #30 tablet Lactobacillus Acidophilus [Bacid Acidophilus] 1 cap PO DAILY #30 cap Metronidazole [Flagyl] 500 mg PO TID #21 tablet - Follow Up Plan Condition: FAIR Disposition: HOME/ ROUTINE Instructions: Low Fiber Diet, Diverticulitis (DC), Dietary Fats, Acute Abdominal Pain (DC), Acute Abdominal Pain (GEN) Additional Instructions: Follow up with Primary care doctor within 3-5 days. Please continue antibiotics , Cipro and Flagyl for 7 days as directed. Please do not drink alcohol while on these medications. In addition, please follow a low residue diet that is low in seeds and nuts. Please follow up with nephrology Dr. Cabrera within 3-5 days for your kidneys. If symptoms return, please return to emergency room. Referrals: Manish Gonzalez MD [Primary Care Provider] - José Miguel Cabrera MD [Staff Provider] - Manish Courtney MD [Staff Provider] -
== END 2018-03-11 17:58 | disposition home or self-care (01) | DRG 392 ==
LOC: ED 01:27 → ERH 06:39 → 5RSO 08:32
PROVIDERS: ADMIT Internal Medicine; ATTEND Hospitalist
DX: K57.32 Diverticulitis of large intestine without perforation or abscess without bleeding (principal); N17.9 Acute kidney failure, unspecified; I13.0 Hypertensive heart and chronic kidney disease with heart failure and stage 1 through stage 4 chronic kidney disease, or unspecified chronic kidney disease; I50.22 Chronic systolic (congestive) heart failure; E10.22 Type 1 diabetes mellitus with diabetic chronic kidney disease; N18.3 Chronic kidney disease, stage 3 (moderate); I25.10 Atherosclerotic heart disease of native coronary artery without angina pectoris; D63.8 Anemia in other chronic diseases classified elsewhere; K59.00 Constipation, unspecified; Z95.2 Presence of prosthetic heart valve; Z79.82 Long term (current) use of aspirin; Z88.6 Allergy status to analgesic agent; Z83.3 Family history of diabetes mellitus; Z95.5 Presence of coronary angioplasty implant and graft

== ENCOUNTER 2018-09-17 10:18 | Outpatient (CLI) | payer MEDICARE | END 2018-09-17 10:19 | disposition home or self-care (01) | LOC: RAD 10:18 ==

== ENCOUNTER 2018-10-16 10:59 | Outpatient (CLI) | payer MEDICARE | END 2018-10-16 11:00 | disposition home or self-care (01) | LOC: RAD 10:59 ==